=== PATIENT | male | born 1965 | race Caucasian/White ===

== ENCOUNTER 2019-03-30 18:08 | Observation (INO) ==
[2019-03-30] MEDS ORDERED: Acetaminophen 325 MG TABLET PO PRN (20:14)
[2019-03-30] MEDS ORDERED: Naloxone 0.4 MG/ML INJ IVP PRN (20:14)
[2019-03-30] MEDS ORDERED: Ondansetron 4 MG/2 ML VIAL IVP PRN (20:14)
[2019-03-30] MEDS ORDERED: 0.9 % Sodium Chloride 1,000 ML IVC SCH (20:15)
[2019-03-31 00:18] LABS: Bilirubin,Urine Negative (Negative); Blood,Urine Negative (Negative); Clarity,Urine Clear (Clear); Color,Urine Yellow (Yellow); Glucose,Urine (UA) Normal (Normal); Ketones,Urine Negative (Negative); Leukocyte Esterase,Urine Negative (Negative); Nitrite,Urine Negative (Negative); Protein,Urine Negative (Neg-Trace); Specific Gravity,Urine 1.012 (1.010-1.025); Urobilinogen,Urine Normal (Normal)
[2019-03-31] MEDS ORDERED: Ipratropium/Albuterol Neb 3 ML IH PRN (01:55)
[2019-03-31 07:45] LABS: Basophils % 0.3 %; Eosinophils # 0.3 K/mcL (0.0-0.6); Eosinophils % 2.4 %; Hematocrit 37.3 % (37.5-50.1); Hemoglobin 12.5 g/dL (12.9-16.9); Immature Granulocytes % 0.5 % (0-4); Lymphocytes % 17.3 %; Mean Corpuscular HGB Conc 33.5 g/dL (31.6-35.5); Mean Corpuscular Hemoglobin 29.5 pg (28.0-33.3); Mean Platelet Volume 9.7 fL (9.4-12.4); Monocytes # 0.9 K/mcL (0.0-1.3); Monocytes % 7.5 %; Neutrophils # 8.4 K/mcL (1.6-8.9); Platelet Count 288 K/mcL (140-400); Red Blood Count 4.24 M/mcL (4.19-5.50); Red Cell Distribution Width 14.2 % (11.5-14.5); White Blood Count 11.7 K/mcL (4.3-11.1)
[2019-03-31 07:50] LABS: INR 1.1; Prothrombin Time 12.4 Seconds (9.4-12.1)
[2019-03-31 08:04] LABS: Alanine Aminotransferase 7 Units/L (7-52); Albumin 3.8 g/dL (3.5-5.7); Albumin/Globulin Ratio 1.1 (1.1-2.2); Alkaline Phosphatase 218 Units/L (34-104); Aspartate Amino Transferase 9 Units/L (13-39); BUN/Creatinine Ratio 11 (6-26); Bilirubin,Total 0.3 mg/dL (0.3-1.0); Blood Urea Nitrogen 12 mg/dL (6-20); Calcium 8.7 mg/dL (8.6-10.3); Carbon Dioxide 26 mEq/L (23-29); Chloride 103 mEq/L (98-107); Globulin 3.4 g/dL (2.4-3.5); Glucose 116 mg/dL (70-105); Magnesium 1.8 mg/dL (1.6-2.6); Osmolality,Calculated 287 (280-300); Potassium 3.6 mEq/L (3.5-5.1); Sodium 138 mEq/L (136-145); Total Protein 7.2 g/dL (6.4-8.9); eGFR For African Americans > 60 (> 60); eGFR For Non-African Americans > 60 (> 60)
--- NOTE | 2019-03-31 09:09 | Internal Med History&Physical ---
Date of Encounter: 03/31/19 Time of Encounter: 02:00 Internal Medicine - H&P: HPI Chief complaint: Left flank pain History of present illness: Mr. Last is a 53 year old male with past medical history of GERD, hyperlipidemia, hypertension, COPD on oxygen as needed who initially presented to [facility] with complaints of left-sided flank pain. Patient reports a 2 week history of intermittent sharp left-sided flank pain radiating across the front of his abdomen. No reports of aggravating or alleviating factors. Symptoms became more progressive and constant over the past few days and did not subside as usual. Patient developed nausea with one episode of nonbloody nonbilious emesis. No reports of fever, chills, diarrhea, melena or hematochezia. Patient denies any pain or burning with urination. CT scan of the abdomen/pelvis was obtained which showed a left ureteral obstruction with forniceal rupture and retroperitoneal lymphadenopathy. Laboratory workup was notable for a mild leukocytosis of 11.4. Creatinine within normal limits. Case was discussed with on-call urologist who agreed to see patient in the morning. On my assessment patient was hemodynamically stable. Did not appear clinically septic. Did have notable CVA tenderness and pain which has responded to sublingual oxycodone. Past Med Surg Social Fam HX - Past Medical History Medical history: arthritis, COPD, GERD Psychiatric history: anxiety - Past Surgical History Additional surgical history: knee surgery - Social History Smoking Status: Current every day smoker Packs per day: 1 Smokeless Tobacco Status: No Alcohol use: rarely Drug use: none Internal Medicine - H&P: Meds Albuterol Sulfate [Proventil Inhaler] 2 puff IH Q4H PRN 03/31/19 [History] Atorvastatin [Lipitor] 20 mg PO HS 03/31/19 [History] Buspirone HCl [Buspar] 15 mg PO TID PRN 03/31/19 [History] Gabapentin [Neurontin] 600 mg PO BID 03/31/19 [History] Omeprazole [PriLOSEC] 40 mg PO DAILY 03/31/19 [History] Oxycodone HCl/Acetaminophen [Percocet 5-325 mg Tablet] 1 tab PO Q8H PRN 03/31/19 [History] Tiotropium Evans [Spiriva Respimat] 2 puff PO DAILY 03/31/19 [History] Allergy/AdvReac Type Severity Reaction Status Date / Time Penicillins Allergy Hives Verified 03/30/19 19:56 All Systems PM: A 10-system review of systems was performed and is negative for pertinent findings except as documented above in the HPI. - Constitutional Constitutional: no chills, no fever(s), no night sweats - EENT Eyes: no change in vision, no discharge, no pain, no photophobia Ears: no ear discharge, no ear pain, no tinnitus Nose, mouth and throat: no dysphagia, no nasal discharge, no neck pain, no sore throat - Cardiovascular Cardiovascular ROS IM: no chest pain, no diaphoresis, no dyspnea, no lightheadedness, no palpitations, no syncope - Respiratory Respiratory: no cough, no dyspnea, no wheezing, no excessive phlegm production - Gastrointestinal Gastrointestinal: no abdominal pain, no diarrhea, no hematemesis, no hematochezia, no melena, no nausea, no vomiting - Musculoskeletal Musculoskeletal ROS IM: no numbness, no tingling - Integumentary Integumentary IM: no rash, no unusual bruising - Neurological Neurological ROS: no confusion, no convulsions, no focal weakness, no numbness, no tingling, no tremor(s) - Hematologic/Lymphatic Hematologic/Lymphatic: no easy bruising - Constitutional Vitals: Temp Pulse Resp BP Pulse Ox 98.3 F 78 16 121/74 90 03/31/19 06:55 03/31/19 06:55 03/31/19 06:55 03/31/19 06:55 03/31/19 06:55 Exam: General: Alert and oriented 3 sitting up in bed in no acute distress Skin:Normal color, no rash, no lesions. HEENT:EOM, pupils equal, round and reactive. Cardiovascular:Normal S1 & S2, no rubs, murmurs or gallops. No JVD. Pulse regular. Lungs: Bilateral expiratory wheezing Abdomen:Soft, non-tender, no rigidity. Left-sided CVA tenderness Extremities:No deformity, no edema or tenderness, no joint swelling or clubbing. Neurological:Normal cognition and motor skills. Pulses:Carotid and radial pulses normal +2. Rest of the physical exam is non contributory Internal Med - H&P Results - Labs CBC & Chem 7: 03/31/19 07:13 03/31/19 07:13 Labs: Short CBC 03/31/19 Range/Units 07:13 WBC 11.7 H (4.3-11.1) K/mcL Hgb 12.5 L (12.9-16.9) g/dL Hct 37.3 L (37.5-50.1) % Plt Count 288 (140-400) K/mcL Neutrophils # 8.4 (1.6-8.9) K/mcL BMP 03/31/19 07:13 Sodium 138 Potassium 3.6 Chloride 103 Carbon Dioxide 26 BUN 12 Creatinine 1.06 Glucose 116 H Calcium 8.7 Liver Function 03/31/19 Range/Units 07:13 Total Bilirubin 0.3 (0.3-1.0) mg/dL AST 9 L (13-39) Units/L ALT 7 (7-52) Units/L Alkaline Phosphatase 218 H (34-104) Units/L Albumin 3.8 (3.5-5.7) g/dL Urine 03/31/19 Range/Units 00:11 Urine Color Yellow (Yellow) Urine Clarity Clear (Clear) Urine pH 6.0 (5.0-8.0) pH Units Ur Specific [place] 1.012 (1.010-1.025) Urine Protein Negative (Neg-Trace) mg/dL Urine Glucose (UA) Normal (Normal) mg/dL - Assessment and Plan (1) Ureteral obstruction, left Current Visit: Yes Status: Acute Assessment and plan: Patient presenting with intermittent sharp left-sided flank pain. Clinically does not appear septic. Did have mild leukocytosis of 11. Repeat here 11.7. Kidney function within normal limits. UA does not show any evidence of infection. CT scan of the abdomen and pelvis showing sided ureteral obstruction with forniceal rupture. -Case discussed with Dr. Hook with urology who will follow. -We will continue patient on supportive fluids -Pain control as needed -We will keep NPO (2) COPD (chronic obstructive pulmonary disease) Current Visit: Yes Status: Acute Assessment and plan: History of COPD currently on home oxygen as needed. Faint bilateral expiratory wheezing noted on lung examination. Patient otherwise not hypoxic. -We give patient one trial of duo nebs and continue as needed -Resume home inhalers Qualifiers: Emphysema type: unspecified Qualified Code(s): J43.9 - Emphysema, unspecified (3) Hypertension Current Visit: Yes Status: Acute Assessment and plan: Blood pressure stable. Resume home antihypertensives once verified. Qualifiers: Hypertension type: essential hypertension Qualified Code(s): I10 - Essential (primary) hypertension (4) Retroperitoneal lymphadenopathy Current Visit: Yes Status: Acute Assessment and plan: Await further evaluation by Urology. (5) DVT prophylaxis Current Visit: Yes Status: Acute - Time Spent With Patient Total time spent is greater than 50% in coordination of care (as documented) at patient's floor/unit and/or counseling patient:
--- NOTE | 2019-03-31 10:39 | Urology - Consult Note ---
<Janette Ni N - Last Filed: 03/31/19 10:37> Date of Encounter: 03/31/19 Time of Encounter: 08:15 - Assessment and Plan (1) Hydronephrosis Current Visit: Yes Status: Acute Assessment and plan: Patient is a 53-year-old male who presents with a history of retroperitoneal lymphadenopathy and mild left hydronephrosis. Vital signs are currently stable and afebrile. Renal function is reassuring with a GFR greater than 60. We are awaiting the submission of CT images for review. We have ordered a PSA for evaluation. We discussed lymphadenopathy with patient at bedside, and he is adamant about abstaining from any diagnostic procedures or treatment if malignant. At this time, there is no urgent urologic surgical intervention needed as renal function remains normal. We will reevaluate patient tomorrow morning and possibly further discuss lymph node biopsy at that time. Qualifiers: Hydronephrosis type: unspecified Qualified Code(s): N13.30 - Unspecified hydronephrosis (2) Left flank pain Current Visit: Yes Status: Acute Assessment and plan: Patient is a 53-year-old male who presents the history of left flank pain secondary to mild left hydronephrosis. Renal function remains reassuring. We will continue with IV fluids and pain control. Patient is initially resistant to lymph node biopsy. We discussed the procedure, and patient will contemplate overnight. (3) Retroperitoneal lymphadenopathy Current Visit: Yes Status: Acute Assessment and plan: Patient is a 53-year-old male who presents with retroperitoneal lymphadenopathy. Reviewed these findings with patient at bedside. White blood cell count is 11.7, and renal function is reassuring. We are awaiting CT images for review. Patient will likely require a biopsy for definitive diagnosis. Urology CN:ELENA Consult date: 03/31/19 Reason for consult Urology: Hydronephrosis (left hydronephrosis) Requesting physician: Noe Graves History of present illness: Patient is a 53-year-old male who presents with a history of retroperitoneal lymphadenopathy and left hydronephrosis. Patient reports a 1 month history of left flank pain, but he states this acutely worsened over the last 2-3 days. He initially presented to [facility] where he underwent a CT of the abdomen and pelvis revealing retroperitoneal lymphadenopathy greater than 2 cm and mild left hydronephrosis. Patient denies any past history of renal stones. He denies ever previously seeing a urologist. He is currently sitting upright in bed in no apparent distress, and he denies any weight loss, fever, chills, dysuria, gross hematuria, urgency, frequency or incontinence. Patient admits to occasional urinary hesitancy and weak stream, and he has not undergone prostate cancer screening. Patient denies any known family history of renal stones, prostate cancer or other malignancy. Past Med Surg Social Fam HX - Past Medical History Medical history: arthritis, COPD, GERD Psychiatric history: anxiety - Past Surgical History Additional surgical history: knee surgery - Social History Smoking Status: Current every day smoker Packs per day: 1 Smokeless Tobacco Status: No Alcohol use: rarely Drug use: none - Additional Family History Additional family history: No known documented family history of malignancy Medications and Allergies Allergy/AdvReac Type Severity Reaction Status Date / Time Penicillins Allergy Hives Verified 03/30/19 19:56 Review of Systems - Constitutional no chills, no fatigue, no fever(s) - EENT Nose, mouth and throat: no dizziness, no headache(s) - Cardiovascular no chest pain, no diaphoresis, no dyspnea - Respiratory no cough, no dyspnea - Gastrointestinal abdominal pain, nausea, vomiting - Genitourinary change in urinary stream, flank pain, urinary hesitancy, no dysuria, no hematuria, no urinary frequency, no urinary incontinence, no urinary urgency - Musculoskeletal back pain, no muscle weakness - Integumentary no erythema, no rash - Neurological no confusion, no syncope - Psychiatric no anxiety, no confusion - Hematologic/Lymphatic no easy bleeding, no easy bruising - Allergic/Immunologic no throat swelling, no wheezing Exam Initial Vital Signs Temp Pulse Resp BP Pulse Ox 97.5 F L 58 16 145/83 94 03/30/19 20:32 03/30/19 20:32 03/30/19 20:32 03/30/19 20:32 03/30/19 20:32 - General physical appearance Present: no distress, no pain - Eyes Present: PERRL, normal ocular movement - ENT Present: normal nares, no hearing loss, no congestion - Neck Present: no masses, trachea midline - Respiratory Present: normal respiratory effort - Cardiovascular Cardiovascular exam IM: RRR - Abdomen Abdomen: Present: soft, non tender. Absent: distended - Genitourinary other (left CVAT) - Integumentary Present: no rash, no abnormal pigmentation - Neurologic Present: normal coordination - Musculoskeletal Present: other (normal posture ) Urology Results - Labs 03/31/19 07:13 03/31/19 07:13 Abnormal lab results WBC 11.7 K/mcL (4.3-11.1) H 03/31/19 07:13 Hgb 12.5 g/dL (12.9-16.9) L 03/31/19 07:13 Hct 37.3 % (37.5-50.1) L 03/31/19 07:13 PT 12.4 Seconds (9.4-12.1) H 03/31/19 07:13 Glucose 116 mg/dL (70-105) H 03/31/19 07:13 AST 9 Units/L (13-39) L 03/31/19 07:13 Alkaline Phosphatase 218 Units/L (34-104) H 03/31/19 07:13 Diabetes panel 03/31/19 Range/Units 07:13 Sodium 138 (136-145) mEq/L Potassium 3.6 (3.5-5.1) mEq/L Chloride 103 (98-107) mEq/L Carbon Dioxide 26 (23-29) mEq/L BUN 12 (6-20) mg/dL Creatinine 1.06 (0.70-1.30) mg/dL Glucose 116 H (70-105) mg/dL Calcium 8.7 (8.6-10.3) mg/dL AST 9 L (13-39) Units/L ALT 7 (7-52) Units/L Alkaline Phosphatase 218 H (34-104) Units/L Albumin 3.8 (3.5-5.7) g/dL Calcium panel 03/31/19 Range/Units 07:13 Calcium 8.7 (8.6-10.3) mg/dL Albumin 3.8 (3.5-5.7) g/dL Pituitary panel 03/31/19 Range/Units 07:13 Sodium 138 (136-145) mEq/L Potassium 3.6 (3.5-5.1) mEq/L Chloride 103 (98-107) mEq/L Carbon Dioxide 26 (23-29) mEq/L BUN 12 (6-20) mg/dL Creatinine 1.06 (0.70-1.30) mg/dL Glucose 116 H (70-105) mg/dL Calcium 8.7 (8.6-10.3) mg/dL Adrenal panel 03/31/19 Range/Units 07:13 Sodium 138 (136-145) mEq/L Potassium 3.6 (3.5-5.1) mEq/L Chloride 103 (98-107) mEq/L Carbon Dioxide 26 (23-29) mEq/L BUN 12 (6-20) mg/dL Creatinine 1.06 (0.70-1.30) mg/dL Glucose 116 H (70-105) mg/dL Calcium 8.7 (8.6-10.3) mg/dL Total Bilirubin 0.3 (0.3-1.0) mg/dL AST 9 L (13-39) Units/L ALT 7 (7-52) Units/L Alkaline Phosphatase 218 H (34-104) Units/L Albumin 3.8 (3.5-5.7) g/dL All other labs normal. - Imaging CT scan - abdomen: report reviewed CT scan - pelvis: report reviewed Consult Discharge Plan - Plan Referrals: NONE,PCP [Primary Care Provider] - <Armaan Hook - Last Filed: 03/31/19 11:15> Date of Encounter: 03/31/19 Urology CN:HPI History of present illness: Patient was seen and examined independently. I reviewed the plan as written by Janette Ni. When I discussed the patient his diagnosis of significant adenop athy and the possible need for biopsy. Patient became aggressive stating that he would never have a biopsy performed as this would spread his cancer. I explained to the patient that biopsies do not spread cancer. He stated that at this time he will think about it. Patient's hydronephrosis appears mild on report. The CT scan is being brought from outside hospital for personal review. I will review the CT scan. No urgent need for urological intervention at this time. I question whether the patient's pain is from lymphadenopathy or from hydronephrosis. If patient would like to move forward with any diagnosis or treatment I would recommend percutaneous nephrostomy tube placement as compared to a ureteral stent as ureteral stents are notorious for failing from external compression. Exam Initial Vital Signs Temp Pulse Resp BP Pulse Ox 97.5 F L 58 16 145/83 94 03/30/19 20:32 03/30/19 20:32 03/30/19 20:32 03/30/19 20:32 03/30/19 20:32 Urology Results - Labs 03/31/19 07:13 03/31/19 07:13 Abnormal lab results WBC 11.7 K/mcL (4.3-11.1) H 03/31/19 07:13 Hgb 12.5 g/dL (12.9-16.9) L 03/31/19 07:13 Hct 37.3 % (37.5-50.1) L 03/31/19 07:13 PT 12.4 Seconds (9.4-12.1) H 03/31/19 07:13 Glucose 116 mg/dL (70-105) H 03/31/19 07:13 AST 9 Units/L (13-39) L 03/31/19 07:13 Alkaline Phosphatase 218 Units/L (34-104) H 03/31/19 07:13 Diabetes panel 03/31/19 Range/Units 07:13 Sodium 138 (136-145) mEq/L Potassium 3.6 (3.5-5.1) mEq/L Chloride 103 (98-107) mEq/L Carbon Dioxide 26 (23-29) mEq/L BUN 12 (6-20) mg/dL Creatinine 1.06 (0.70-1.30) mg/dL Glucose 116 H (70-105) mg/dL Calcium 8.7 (8.6-10.3) mg/dL AST 9 L (13-39) Units/L ALT 7 (7-52) Units/L Alkaline Phosphatase 218 H (34-104) Units/L Albumin 3.8 (3.5-5.7) g/dL Calcium panel 03/31/19 Range/Units 07:13 Calcium 8.7 (8.6-10.3) mg/dL Albumin 3.8 (3.5-5.7) g/dL Pituitary panel 03/31/19 Range/Units 07:13 Sodium 138 (136-145) mEq/L Potassium 3.6 (3.5-5.1) mEq/L Chloride 103 (98-107) mEq/L Carbon Dioxide 26 (23-29) mEq/L BUN 12 (6-20) mg/dL Creatinine 1.06 (0.70-1.30) mg/dL Glucose 116 H (70-105) mg/dL Calcium 8.7 (8.6-10.3) mg/dL Adrenal panel 03/31/19 Range/Units 07:13 Sodium 138 (136-145) mEq/L Potassium 3.6 (3.5-5.1) mEq/L Chloride 103 (98-107) mEq/L Carbon Dioxide 26 (23-29) mEq/L BUN 12 (6-20) mg/dL Creatinine 1.06 (0.70-1.30) mg/dL Glucose 116 H (70-105) mg/dL Calcium 8.7 (8.6-10.3) mg/dL Total Bilirubin 0.3 (0.3-1.0) mg/dL AST 9 L (13-39) Units/L ALT 7 (7-52) Units/L Alkaline Phosphatase 218 H (34-104) Units/L Albumin 3.8 (3.5-5.7) g/dL All other labs normal.
[2019-03-31] MEDS ORDERED: *HR* OxyCODONE/APAP 5/325 TABLET PO SCH (14:00)
[2019-03-31] MEDS: *HR* HYDROmorphone (PF) 1 MG/ML SYRINGE IVP PRN ×2 (15:13→21:06)
[2019-03-31] MEDS: *HR* OxyCODONE/APAP 5/325 TABLET PO SCH (19:54)
--- NOTE | 2019-03-31 20:04 | Internal Med Progress Note ---
Hospitalist Progress Note - Encounter Date of Encounter: 03/31/19 Time of Encounter: 13:00 - Subjective Interval History: Mr Last does report family history of malignancies but denies any personal history. He denies any dysuria or urinary continence however his ex- who was at his bedside and can be reached at [phone] that he does have urinary incontinence. Patient became quite irritable and was verbally abusive to his ex- was at his bedside. He was evaluated by urology and is planned for biopsy tomorrow due to abnormal CT imaging findings from [facility]. Patient appears visibly upset about his current state of health GEN: Denies fever, chills or malaise HEENT: Denies headache blurriness, or dysphagia RESP: Denies SOB or cough CV: Denies chest pain or palpitations GI: Denies Nausea, vomiting, diarrhea or constipation Reviewed current in hospital medications with modifications see orders Reviewed Routine labs - Exam Vitals: Temp Pulse Resp BP Pulse Ox 98.4 F 82 15 124/81 93 03/31/19 14:27 03/31/19 14:27 03/31/19 14:27 03/31/19 14:27 03/31/19 14:27 Exam: GEN: NAD, A&O x 3, irritable agitated SKIN: [place] warm acyanotic not jaundice HEART: RRR, no murmurs LUNGS: CTA no wheeze or crackles, overall non labored ABDOMEN; Soft, non tender or distended, BS x 4 normactive EXT: No LE edema, Pedal pulses 1+, radial pulses 2+ PSYCH: Mood irritable and affect labile - Assessment and Plan (1) Retroperitoneal lymphadenopathy Current Visit: Yes Status: Acute Assessment and Plan: Biopsy planned for tomorrow given his elevated PSA of 92.36 suspect metastatic prostate malignancy. (2) COPD (chronic obstructive pulmonary disease) Current Visit: Yes Status: Acute Assessment and Plan: DuoNeb (3) Ureteral obstruction, left Current Visit: Yes Status: Acute Assessment and Plan: Suspect malignancy urologist following plans for biopsy patient denies any urinary incontinence, monitor I's and O's (4) Hypertension Current Visit: Yes Status: Acute Assessment and Plan: Normotensive (5) DVT prophylaxis Current Visit: Yes Status: Acute Assessment and Plan: SCDs (6) Elevated PSA Current Visit: Yes Status: Acute Assessment and Plan: Repeat PSA suspect prostate malignancy as aforementioned - Time Spent with Patient Total time spent is greater than 50% in coordination of care (as documented) at patient's floor/unit and/or counseling patient: Internal Medicine: Result - Labs CBC & Chem 7: 03/31/19 07:13 03/31/19 07:13 Labs: Short CBC 03/31/19 Range/Units 07:13 WBC 11.7 H (4.3-11.1) K/mcL Hgb 12.5 L (12.9-16.9) g/dL Hct 37.3 L (37.5-50.1) % Plt Count 288 (140-400) K/mcL Neutrophils # 8.4 (1.6-8.9) K/mcL BMP 03/31/19 07:13 Sodium 138 Potassium 3.6 Chloride 103 Carbon Dioxide 26 BUN 12 Creatinine 1.06 Glucose 116 H Calcium 8.7 Liver Function 03/31/19 Range/Units 07:13 Total Bilirubin 0.3 (0.3-1.0) mg/dL AST 9 L (13-39) Units/L ALT 7 (7-52) Units/L Alkaline Phosphatase 218 H (34-104) Units/L Albumin 3.8 (3.5-5.7) g/dL Urine 03/31/19 Range/Units 00:11 Urine Color Yellow (Yellow) Urine Clarity Clear (Clear) Urine pH 6.0 (5.0-8.0) pH Units Ur Specific [place] 1.012 (1.010-1.025) Urine Protein Negative (Neg-Trace) mg/dL Urine Glucose (UA) Normal (Normal) mg/dL - ABG Interpretation ABG results: PT/INR, D-dimer PT 12.4 Seconds (9.4-12.1) H 03/31/19 07:13 Consult Discharge Plan - Plan Referrals: NONE,PCP [Primary Care Provider] - (2) COPD (chronic obstructive pulmonary disease) Qualifiers: Emphysema type: unspecified Qualified Code(s): J43.9 - Emphysema, unspecified (4) Hypertension Qualifiers: Hypertension type: essential hypertension Qualified Code(s): I10 - Essential (primary) hypertension
[2019-04-01] MEDS: *HR* OxyCODONE/APAP 5/325 TABLET PO SCH ×2 (01:58→08:10)
[2019-04-01 06:19] LABS: Basophils % 0.3 %; Eosinophils # 0.3 K/mcL (0.0-0.6); Eosinophils % 2.5 %; Hematocrit 36.1 % (37.5-50.1); Hemoglobin 12.1 g/dL (12.9-16.9); Immature Granulocytes % 0.3 % (0-4); Lymphocytes # 2.9 K/mcL (0.6-4.6); Lymphocytes % 28.2 %; Mean Corpuscular HGB Conc 33.5 g/dL (31.6-35.5); Mean Corpuscular Hemoglobin 29.7 pg (28.0-33.3); Mean Corpuscular Volume 88.5 fL (83.0-100.0); Mean Platelet Volume 9.6 fL (9.4-12.4); Monocytes # 1.1 K/mcL (0.0-1.3); Monocytes % 10.8 %; Platelet Count 282 K/mcL (140-400); Red Blood Count 4.08 M/mcL (4.19-5.50); Red Cell Distribution Width 13.8 % (11.5-14.5); Segmented Neutrophils % 57.9 %; White Blood Count 10.3 K/mcL (4.3-11.1)
[2019-04-01 06:35] LABS: BUN/Creatinine Ratio 10 (6-26); Blood Urea Nitrogen 10 mg/dL (6-20); Calcium 8.7 mg/dL (8.6-10.3); Carbon Dioxide 27 mEq/L (23-29); Chloride 102 mEq/L (98-107); Glucose 111 mg/dL (70-105); Osmolality,Calculated 286 (280-300); Potassium 3.9 mEq/L (3.5-5.1); Sodium 138 mEq/L (136-145); eGFR For African Americans > 60 (> 60); eGFR For Non-African Americans > 60 (> 60)
[2019-04-01 07:43] VITALS: BP 145/91
[2019-04-01] MEDS ORDERED: Gabapentin 300 MG CAPSULE PO SCH (09:00)
[2019-04-01] MEDS: *HR* HYDROmorphone (PF) 1 MG/ML SYRINGE IVP PRN (09:30)
--- NOTE | 2019-04-01 10:00 | Urology Progress Note ---
<Janette Ni N - Last Filed: 04/01/19 09:58> Date of Encounter: 04/01/19 Time of Encounter: 08:40 - Assessment and Plan (1) Hydronephrosis Status: Acute Qualifiers: Hydronephrosis type: unspecified Qualified Code(s): N13.30 - Unspecified hydronephrosis (2) Left flank pain Status: Acute (3) Retroperitoneal lymphadenopathy Status: Acute (4) Elevated PSA Status: Acute Assessment and plan: Patient is a 53-year-old male who presents with extensive retroperitoneal lymphadenopathy, elevated PSA, left flank pain and mild left hydronephrosis. I reviewed elevated PSA result of 93.87 with patient and his partner. I expressed my immediate concern for metastatic prostate cancer. I discussed oncology consultation, prostate biopsy, and potential lymph node biopsy by interventional radiology. Patient became increasingly agitated, and he demanded pain medi cation and discharge. He states he would like to be discharged with adequate amounts of pain medicine to go home and visit family for 1 week. Patient reports he will then return for further testing. I explained that certain diagnostic procedures may be necessary to obtain an accurate diagnosis, and we are unable to frivolously prescribe narcotics without definitive diagnosis. Patient proceeded to use multiple cursewords and demand discharge. I discussed this encounter with the charge nurse and Dr. Hook. GFR remains reassuring at greater than 60, and at this time, I do not anticipate any urgent need for nephrostomy tube. We are happy to see patient as an outpatient to plan a prostate biopsy and repeat imaging. Progress Note Subjective: still having pain Narrative: Patient seen and examined sitting upright in bed in no apparent distress. Patient with significant other at bedside. Patient reports continued left lower quadrant pain. He is voiding well without difficulty. He denies any fever, chills, chest pain or dyspnea. Objective Initial Vital Signs Temp Pulse Resp BP Pulse Ox 97.5 F L 58 16 145/83 94 03/30/19 20:32 03/30/19 20:32 03/30/19 20:32 03/30/19 20:32 03/30/19 20:32 - General physical appearance Present: no distress, moderate pain - Respiratory Present: normal expansion, normal respiratory effort - Abdomen Present: soft, non tender. Absent: distended - Integumentary Present: no rash, no abnormal pigmentation - Musculoskeletal Present: normal posture - Psychiatric Present: oriented to time, oriented to person, oriented to place, speech is normal, memory intact - Labs 04/01/19 05:35 04/01/19 05:35 Diabetes panel 04/01/19 Range/Units 05:35 Sodium 138 (136-145) mEq/L Potassium 3.9 (3.5-5.1) mEq/L Chloride 102 (98-107) mEq/L Carbon Dioxide 27 (23-29) mEq/L BUN 10 (6-20) mg/dL Creatinine 1.05 (0.70-1.30) mg/dL Glucose 111 H (70-105) mg/dL Calcium 8.7 (8.6-10.3) mg/dL Calcium panel 04/01/19 Range/Units 05:35 Calcium 8.7 (8.6-10.3) mg/dL Pituitary panel 04/01/19 Range/Units 05:35 Sodium 138 (136-145) mEq/L Potassium 3.9 (3.5-5.1) mEq/L Chloride 102 (98-107) mEq/L Carbon Dioxide 27 (23-29) mEq/L BUN 10 (6-20) mg/dL Creatinine 1.05 (0.70-1.30) mg/dL Glucose 111 H (70-105) mg/dL Calcium 8.7 (8.6-10.3) mg/dL Adrenal panel 04/01/19 Range/Units 05:35 Sodium 138 (136-145) mEq/L Potassium 3.9 (3.5-5.1) mEq/L Chloride 102 (98-107) mEq/L Carbon Dioxide 27 (23-29) mEq/L BUN 10 (6-20) mg/dL Creatinine 1.05 (0.70-1.30) mg/dL Glucose 111 H (70-105) mg/dL Calcium 8.7 (8.6-10.3) mg/dL Consult Discharge Plan - Plan Instructions: Hydronephrosis (DC) Referrals: Krunal Caban DO [Partnered Physician] - (Web request. Office will call patient with date and time of appointment. Thank you) Prescriptions: Polyethylene Glycol 3350 [MiraLAX] 17 gm PO DAILY #527 gm OxyCODONE/APAP 5/325 [Percocet 5/325 MG] 1 each PO Q6H 7 Days #28 tablet <Esham,Armaan Orlando - Last Filed: 04/01/19 15:49> Date of Encounter: 04/01/19 Progress Note Narrative: Patient left before being seen. To note patient's PSA was markedly elevated consistent with metastatic prostate cancer. Patient left before I was able to discuss this with him. Objective Initial Vital Signs Temp Pulse Resp BP Pulse Ox 97.5 F L 58 16 145/83 94 03/30/19 20:32 03/30/19 20:32 03/30/19 20:32 03/30/19 20:32 03/30/19 20:32 - Labs 04/01/19 05:35 04/01/19 05:35 Diabetes panel 04/01/19 Range/Units 05:35 Sodium 138 (136-145) mEq/L Potassium 3.9 (3.5-5.1) mEq/L Chloride 102 (98-107) mEq/L Carbon Dioxide 27 (23-29) mEq/L BUN 10 (6-20) mg/dL Creatinine 1.05 (0.70-1.30) mg/dL Glucose 111 H (70-105) mg/dL Calcium 8.7 (8.6-10.3) mg/dL Calcium panel 04/01/19 Range/Units 05:35 Calcium 8.7 (8.6-10.3) mg/dL Pituitary panel 04/01/19 Range/Units 05:35 Sodium 138 (136-145) mEq/L Potassium 3.9 (3.5-5.1) mEq/L Chloride 102 (98-107) mEq/L Carbon Dioxide 27 (23-29) mEq/L BUN 10 (6-20) mg/dL Creatinine 1.05 (0.70-1.30) mg/dL Glucose 111 H (70-105) mg/dL Calcium 8.7 (8.6-10.3) mg/dL Adrenal panel 04/01/19 Range/Units 05:35 Sodium 138 (136-145) mEq/L Potassium 3.9 (3.5-5.1) mEq/L Chloride 102 (98-107) mEq/L Carbon Dioxide 27 (23-29) mEq/L BUN 10 (6-20) mg/dL Creatinine 1.05 (0.70-1.30) mg/dL Glucose 111 H (70-105) mg/dL Calcium 8.7 (8.6-10.3) mg/dL
--- NOTE | 2019-04-01 10:45 | Discharge Summary ---
- NOTES TO OUTPATIENT PROVIDER Notes to Outpatient Provider: Post hospital discharge per patient demanded to be discharged why he was being worked up for possible metastatic prostate cancer. Discussed palliative options with the patient. He remains undecided but does not want anymore futher work up Orders not resulted at time of discharge: Pending orders 03/31/19 01:55 Urinalysis Reflex Cult & Micro [URIN] Stat Date of Encounter: 04/01/19 Time of Encounter: 10:43 - Discharge Diagnosis (1) Elevated PSA Priority: Primary Status: Acute Assessment and Plan: Repeat PSA was elevated at 93 suspect prostate malignancy given his lymphadenopathy he was scheduled for biopsy today however the patient became agitated and frustrated and requested to be discharged to Will be with his family. He sided several family members of his who from malignancy as such is requesting to go be with his family for 1 week and he plans to come back for work up (2) Retroperitoneal lymphadenopathy Priority: Primary Status: Acute Assessment and Plan: Biopsy planned for tomorrow given his elevated PSA of 92.36 suspect metastatic prostate malignancy. He was scheduled for biopsy today however the patient became agitated and frustrated and requested to be discharged to Will be with his family. He sided several family members of his who from malignancy as such is requesting to go be with his family for 1 week and he plans to come back for work up (3) COPD (chronic obstructive pulmonary disease) Priority: Secondary Status: Acute Assessment and Plan: DuoNeb Qualifiers: Emphysema type: unspecified Qualified Code(s): J43.9 - Emphysema, unspecified (4) Ureteral obstruction, left Priority: Secondary Status: Acute Assessment and Plan: Suspect malignancy urologist following plans for biopsy patient denies any urinary incontinence, monitor I's and O's, uspect prostate malignancy given his lymphadenopathy he was scheduled for biopsy today however the patient became agitated and frustrated and requested to be discharged to Will be with his family. He sided several family members of his who from malignancy as such is requesting to go be with his family for 1 week and he plans to come back for work up (5) Hypertension Priority: Secondary Status: Acute Assessment and Plan: Normotensive Qualifiers: Hypertension type: essential hypertension Qualified Code(s): I10 - Essential (primary) hypertension (6) DVT prophylaxis Priority: Secondary Status: Acute Assessment and Plan: He is being discharged today due to his demands to be discharged Hospital course: Mr. Last is a 53 year old male was hospitalized for left flank pain, his imaging workup at [facility] was a CT abdomen and pelvis which showed lymphad enopathy. Amongst his workup here was a PSA which was elevated at 93 patient was being considered at follow-up lymph node biopsy today however he has declined further work up and demanded to be discharged to go be with his family. He stated he will be back in about a week or 2 after seeing in his family and then he will continue further work. Discussed palliative options with the patient given that he is unwilling to undergo any workup he remains undecided and demanded to be discharged. Discharge discussed with: patient, family, nurse - Time Spent with Patient Total time spent providing and/or coordinating discharge services:35 mins Specific discharge activities: Palliative treatment is always an option for you. Your PCP can arrange it for you, if you change your mind you can always do the work up as an out patient - Discharge Medications Prescriptions: New Polyethylene Glycol 3350 [MiraLAX] 17 gm PO DAILY #527 gm OxyCODONE/APAP 5/325 [Percocet 5/325 MG] 1 each PO Q6H 7 Days #28 tablet Continued Gabapentin [Neurontin] 600 mg PO BID Buspirone HCl [Buspar] 15 mg PO TID PRN PRN Reason: Anxiety Omeprazole [PriLOSEC] 40 mg PO DAILY Tiotropium [place] [Spiriva Respimat] 2 puff PO DAILY Atorvastatin [Lipitor] 20 mg PO HS Albuterol Sulfate [Proventil Inhaler] 2 puff IH Q4H PRN PRN Reason: Wheezing Discontinued Oxycodone HCl/Acetaminophen [Percocet 5-325 mg Tablet] 1 tab PO Q8H PRN PRN Reason: Pain Home Medications: Albuterol Sulfate [Proventil Inhaler] 2 puff IH Q4H PRN 03/31/19 [History] Atorvastatin [Lipitor] 20 mg PO HS 03/31/19 [History] Buspirone HCl [Buspar] 15 mg PO TID PRN 03/31/19 [History] Gabapentin [Neurontin] 600 mg PO BID 03/31/19 [History] Omeprazole [PriLOSEC] 40 mg PO DAILY 03/31/19 [History] Tiotropium [place] [Spiriva Respimat] 2 puff PO DAILY 03/31/19 [History] OxyCODONE/APAP 5/325 [Percocet 5/325 MG] 1 each PO Q6H 7 Days #28 tablet 04/01/19 [Rx] Polyethylene Glycol 3350 [MiraLAX] 17 gm PO DAILY #527 gm 04/01/19 [Rx] Allergies/Adverse Reactions: Allergy/AdvReac Type Severity Reaction Status Date / Time Penicillins Allergy Hives Verified 03/30/19 19:56 Date of admission: 03/30/19 19:35 Primary care physician: PCP NONE Consults: 03/30/19 20:16 Consult to Urology [CONS] Routine Consulting Provider: Urology Celeste Reason for Consult: Left Hydronephrosis Call Completed: Yes Discharging clinician: Trent Marte Anticipated date of discharge: 04/01/19 - Constitutional Vitals: Temp Pulse Resp BP Pulse Ox 98.4 F 76 20 145/91 92 04/01/19 07:39 04/01/19 07:39 04/01/19 07:39 04/01/19 07:39 04/01/19 07:39 Exam: GEN: NAD, A&O x 3, irritable agitated, ex- is bedside SKIN: Parachute warm acyanotic not jaundice HEART: RRR, no murmurs LUNGS: CTA no wheeze or crackles, overall non labored ABDOMEN; Soft, non tender or distended, BS x 4 normactive EXT: No LE edema, Pedal pulses 1+, radial pulses 2+ PSYCH: Mood irritable and affect labile - Patient Status Disposition: Home, Self-Care Condition: Fair Functional capacity at discharge: independent ambulation Overall status at discharge: other (Patient demanded discharge) - Discharge Instructions Follow Up With: NONE,PCP [Primary Care Provider] - - Diet and Activity Activity: resume usual activities as tolerated Diet: advance to your usual diet
== END 2019-04-01 12:47 | disposition home or self-care (01) ==
LOC: 3ANU → SUATTDRO 19:35
PROVIDERS: ADMIT Internal Medicine Nephrology; ATTEND Pharmacist

== ENCOUNTER 2019-06-07 17:03 | Observation (INO) ==
[~2019-06-07 17:03] MED LIST: Aminoglycoside Consult 1 EACH MC ONE; Cefepime HCl 1,000 MG in Water for inj. (sterile) 10 ML IVP ONE
[2019-06-07] MEDS ORDERED: Azithromycin 250 MG TABLET PO ONE (18:48)
[2019-06-07] MEDS ORDERED: 0.9 % Sodium Chloride 1,000 ML IVC ONE (18:48)
[2019-06-07] MEDS ORDERED: Ipratropium/Albuterol Neb 3 ML IH ONE (18:48)
[2019-06-07] MEDS ORDERED: methylPREDNISolone 125 MG/2 ML VIAL IVP ONE (18:48)
[2019-06-07 19:05] LABS: Basophils % 0.3 %; Eosinophils # 0.1 K/mcL (0.0-0.6); Eosinophils % 0.8 %; Hematocrit 34.7 % (37.5-50.1); Hemoglobin 11.5 g/dL (12.9-16.9); Immature Granulocytes % 0.6 % (0-4); Lymphocytes % 25.3 %; Mean Corpuscular HGB Conc 33.1 g/dL (31.6-35.5); Mean Corpuscular Hemoglobin 29.9 pg (28.0-33.3); Mean Corpuscular Volume 90.1 fL (83.0-100.0); Mean Platelet Volume 9.4 fL (9.4-12.4); Monocytes % 13.3 %; Neutrophils # 4.7 K/mcL (1.6-8.9); Platelet Count 279 K/mcL (140-400); Red Blood Count 3.85 M/mcL (4.19-5.50); Red Cell Distribution Width 14.8 % (11.5-14.5); Segmented Neutrophils % 59.7 %; White Blood Count 7.8 K/mcL (4.3-11.1)
[2019-06-07 19:26] LABS: BUN/Creatinine Ratio 13 (6-26); Blood Urea Nitrogen 13 mg/dL (6-20); Calcium 8.8 mg/dL (8.6-10.3); Carbon Dioxide 25 mEq/L (23-29); Chloride 102 mEq/L (98-107); Glucose 82 mg/dL (70-105); Osmolality,Calculated 281 (280-300); Potassium 3.5 mEq/L (3.5-5.1); Sodium 136 mEq/L (136-145); Troponin I < 0.03 ng/mL (< 0.04); eGFR For African Americans > 60 (> 60); eGFR For Non-African Americans > 60 (> 60)
[2019-06-07] MEDS ORDERED: *HR* OxyCODONE/APAP 7.5/325 TABLET PO ONE (21:10)
[2019-06-07] MEDS ORDERED: Naloxone 0.4 MG/ML INJ IVP PRN (21:53)
[2019-06-07] MEDS ORDERED: cefTRIAXone 1,000 MG in 0.9 % Sodium Chloride Mini Bag 100 ML IVPB ONE (22:14)
[2019-06-08] MEDS: cefTRIAXone 1,000 MG in Water for inj. (sterile) 10 ML IVP SCH ×2 (00:33→22:50)
[2019-06-08] MEDS: *HR* Heparin 5,000 UNIT/ML VIAL SQ SCH ×2 (00:34→06:05)
[2019-06-08] MEDS: Gabapentin 300 MG CAPSULE PO SCH ×3 (00:34→20:05)
[2019-06-08] MEDS: Benzonatate 100 MG CAPSULE PO PRN ×2 (00:34→20:05)
[2019-06-08] MEDS: MetroNIDAZOLE 500 MG/100 ML 500 MG/100 ML BAG IVPB SCH ×2 (00:35→09:22)
[2019-06-08] MEDS ORDERED: *HR* OxyCODONE/APAP 5/325 TABLET PO ONE (01:51)
[2019-06-08] MEDS ORDERED: *HR* OxyCODONE/APAP 5/325 TABLET PO SCH ×2 (04:00→12:00)
[2019-06-08 04:28] LABS: Basophils % 0.1 %; Hematocrit 32.3 % (37.5-50.1); Hemoglobin 10.5 g/dL (12.9-16.9); Immature Granulocytes % 0.8 % (0-4); Mean Corpuscular HGB Conc 32.5 g/dL (31.6-35.5); Mean Corpuscular Hemoglobin 29.2 pg (28.0-33.3); Mean Platelet Volume 9.1 fL (9.4-12.4); Monocytes # 0.2 K/mcL (0.0-1.3); Monocytes % 3.1 %; Neutrophils # 6.1 K/mcL (1.6-8.9); Platelet Count 249 K/mcL (140-400); Red Blood Count 3.59 M/mcL (4.19-5.50); Red Cell Distribution Width 14.8 % (11.5-14.5); White Blood Count 7.4 K/mcL (4.3-11.1)
[2019-06-08 04:35] LABS: INR 1.2; Prothrombin Time 13.2 Seconds (9.4-12.1)
[2019-06-08 04:49] LABS: % Iron Saturation 11 % (20-55); Alanine Aminotransferase 4 Units/L (7-52); Albumin 3.5 g/dL (3.5-5.7); Alkaline Phosphatase 472 Units/L (34-104); Aspartate Amino Transferase 10 Units/L (13-39); BUN/Creatinine Ratio 13 (6-26); Bilirubin,Total 0.2 mg/dL (0.3-1.0); Blood Urea Nitrogen 11 mg/dL (6-20); Calcium 8.6 mg/dL (8.6-10.3); Carbon Dioxide 24 mEq/L (23-29); Chloride 106 mEq/L (98-107); Chol/HDL Ratio 4.4 (0-4.9); Cholesterol 160 mg/dL (< 200); Globulin 3.4 g/dL (2.4-3.5); Glucose 148 mg/dL (70-105); HDL Cholesterol 36 mg/dL (40-59); Iron 33 mcg/dL (65-175); LDL Cholesterol,Calculated 100 mg/dL (0-99); Magnesium 2.3 mg/dL (1.6-2.6); Osmolality,Calculated 282 (280-300); Phosphorous 2.9 mg/dL (2.7-4.5); Potassium 3.9 mEq/L (3.5-5.1); Sodium 135 mEq/L (136-145); Total Protein 6.9 g/dL (6.4-8.9); Transferrin 219 mg/dL (203-362); Triglycerides 122 mg/dL (< 150); Troponin I < 0.03 ng/mL (< 0.04); eGFR For African Americans > 60 (> 60); eGFR For Non-African Americans > 60 (> 60)
[2019-06-08 05:02] LABS: Thyroid Stimulating Hormone 14.839 mcIU/mL (0.340-5.600)
[2019-06-08 05:08] LABS: Ferritin 192 ng/mL (20-250)
[2019-06-08] MEDS ORDERED: Isovue-370 500 ML BOTTLE IVP ONE (05:32)
[2019-06-08] MEDS ORDERED: Ipratropium/Albuterol Neb 3 ML ONE (07:58)
[2019-06-08] MEDS: Ipratropium/Albuterol Neb 3 ML IH SCH ×4 (08:00→23:06)
[2019-06-08] MEDS: Budesonide/Formoterol 160/4.5 1 PUFF INH IH SCH ×3 (08:00→23:06)
[2019-06-08 08:14] LABS: Estimated Average Glucose 131 mg/dl
[2019-06-08] MEDS ORDERED: Gabapentin 300 MG CAPSULE PO SCH (09:00)
[2019-06-08] MEDS ORDERED: Perflutren Lipid Microsphere 1.3 ML in 0.9 % Sodium Chloride 8.7 ML IVP ONE (10:31)
[2019-06-08] MEDS: *HR* OxyCODONE/APAP 7.5/325 TABLET PO PRN ×2 (15:18→20:05)
[2019-06-08] MEDS: Doxycycline 100 MG in 0.9 % Sodium Chloride Mini Bag 100 ML IVPB SCH (18:29)
[2019-06-08] MEDS ORDERED: Ketorolac 15 MG/ML VIAL IVP ONE (18:35)
[2019-06-08] MEDS ORDERED: Azithromycin 500 MG in 0.9 % Sodium Chloride 250 ML IVPB SCH (19:00)
[2019-06-09] MEDS ORDERED: traMADol 50 MG TABLET PO ONE (00:42)
[2019-06-09] MEDS: *HR* OxyCODONE/APAP 7.5/325 TABLET PO PRN ×2 (01:28→07:58)
[2019-06-09] MEDS: Ipratropium/Albuterol Neb 3 ML IH SCH ×2 (04:12→09:33)
[2019-06-09 05:06] LABS: Hemoglobin 9.8 g/dL (12.9-16.9); Mean Corpuscular HGB Conc 32.7 g/dL (31.6-35.5); Mean Corpuscular Hemoglobin 29.6 pg (28.0-33.3); Mean Corpuscular Volume 90.6 fL (83.0-100.0); Mean Platelet Volume 9.3 fL (9.4-12.4); Platelet Count 234 K/mcL (140-400); Red Blood Count 3.31 M/mcL (4.19-5.50); Red Cell Distribution Width 15.1 % (11.5-14.5)
[2019-06-09 05:26] LABS: BUN/Creatinine Ratio 12 (6-26); Blood Urea Nitrogen 17 mg/dL (6-20); Calcium 8.2 mg/dL (8.6-10.3); Carbon Dioxide 26 mEq/L (23-29); Chloride 104 mEq/L (98-107); Glucose 152 mg/dL (70-105); Osmolality,Calculated 293 (280-300); Potassium 3.3 mEq/L (3.5-5.1); Sodium 139 mEq/L (136-145); eGFR For African Americans > 60 (> 60); eGFR For Non-African Americans 53 (> 60)
[2019-06-09] MEDS: Doxycycline 100 MG in 0.9 % Sodium Chloride Mini Bag 100 ML IVPB SCH (05:58)
[2019-06-09] MEDS ORDERED: *HR* Enoxaparin 40 MG/0.4 ML SYRINGE SQ SCH (06:00)
[2019-06-09] MEDS: Gabapentin 300 MG CAPSULE PO SCH (07:57)
[2019-06-09] MEDS ORDERED: predniSONE 20 MG TABLET PO SCH (08:00)
[2019-06-09] MEDS: Budesonide/Formoterol 160/4.5 1 PUFF INH IH SCH (09:35)
[2019-06-09] MEDS ORDERED: Tiotropium 18 MCG inhalation IH SCH (10:00)
[2019-06-09 10:43] VITALS: BP 132/84
[2019-06-09] MEDS ORDERED: *HR* OxyCODONE/APAP 7.5/325 TABLET PO ONE (11:23)
== END 2019-06-09 12:50 | disposition home or self-care (01) ==
LOC: EMEROOARM 17:03 → 3ANU 17:03 → SUATTDRO 21:05 → 3ANU 22:19
PROVIDERS: ADMIT Internal Medicine; ATTEND Internal Medicine